=== PATIENT | female | born 1965 | race Caucasian/White ===

== ENCOUNTER 2023-04-21 11:50 | Day surgery (SDC) | payer OTHER ==
--- NOTE | 2023-03-24 13:48 | NUR ---
PT CALLED AND ASKED IF SHE CAN HAVE A ROTATOR CUFF SURGERY ON April AND THEN HAVE HER COLONOSCOPY ON THE . PT REPORTS SHE IS HAVING A RIGHT ROTATOR CUFF REPAIR. DISCUSSED WITH PT SHE NEEDS TO CALL HER SURGEON'S OFFICE TO CLARIFY THAT THERE ARE NO ISSUES WITH DOING BOTH OF THESE. PT AGREEABLE AND STATES UNDERSTANDING.
[~2023-04-21] VITALS: Ht 172.7 cm; Wt 138.6 kg
[~2023-04-21 11:50] MED LIST: CHLORPROMAZINE100 MG PO; CYMBALTA60 MG PO; EZETIMIBE10 MG PO; FIORICET 50-321 EACH PO; FISH OIL 1,0001 EAC1 PO; GABAPENTIN100 MG PO; GABAPENTIN400 MG PO; HYDROCORTISONE30 G1 TOP; IBUPROFEN800 MG PO; KETOROLAC30 MG/1 M2 INJ; KONDREMUL2.5 ML/5 M PO; LEVOTHROID150 MCG PO; MELOXICAM7.5 MG PO; MOTRIN IB200 MG PO; MOTRIN800 MG; MULTIPLE VITAM1 EAC1 PO; NORCO 5-325 TA1 EACH PO; NURTEC ODT75 MG PO; OXYBUTYNIN CHLO10 MG PO; PRISTIQ ER25 MG PO; SENOKOT8.6 MG PO; SEROQUEL100 MG PO; SIMVASTATIN20 MG PO; SPIRONOLACTONE50 MG PO; SUMATRIPTAN SUC50 MG PO; TRAMADOL HCL50 MG PO; TYLENOL WITH C1 EACH PO; VITAMIN D21250 MCG PO; VITAMIN D5000 UNIT PO; WELLBUTRIN XL300 MG PO; ZYRTEC10 MG PO
[2023-04-21 12:14] VITALS: BP 134/82
[2023-04-21] MEDS ORDERED: OXYCODONE HCL5 MG PO (12:19)
[2023-04-21] MEDS ORDERED: DESVENLAFAXINE25 MG PO (12:20)
--- NOTE | 2023-04-21 13:44 | NUR ---
04/21/23 1344 Donna Raphael 1340-PT TO PACU IN LL POSITION. EYES CLOSED. OPENS EYES TO VERBAL STIMULI. BREATHING EASY AND UNLABORED. SPO2 >90% ON 3 L O2 VIA NC. PT DENIES PAIN AND NAUSEA. PT ENCOURAGED TO PASS GAS.
[2023-04-21 14:02] VITALS: BP 116/69
--- NOTE | 2023-04-24 12:28 | PATH ---
[facility] [address] [place], [place] [address] Signed SPECIMEN(S): A CECUM POLYP SPECIMEN(S): B HEPATIC FLEXURE POLYP SPECIMEN(S): C SPLENIC FLEXURE POLYP SPECIMEN(S): D SIGMOID POLYP SPECIMEN SOURCE: A. CECUM POLYP B. HEPATIC FLEXURE POLYP C. SPLENIC FLEXURE POLYP D. SIGMOID POLYP CLINICAL HISTORY: Preop: Diarrhea. Postop: Polyps x4. FINAL PATHOLOGIC DIAGNOSIS: A. Cecum polyp: - Tubular adenoma (three fragments). B. Hepatic flexure polyp: - Tubular adenoma (two fragments). C. Splenic flexure polyp: - Tubular adenoma (one fragment). D. Sigmoid polyp: - Hyperplastic polyp (two fragments). JVR:[facility] MICROSCOPIC EXAMINATION: Histologic sections of all submitted blocks are examined by light microscopy. These findings, together with the gross examination, support the pathologic diagnosis. GROSS DESCRIPTION: A. The specimen, labeled and designated "Aby Michelle" and designated on the requisition "colon, cecum polypectomy," is received in formalin and consists of 5 rodriguez-brown soft tissue fragments measuring 0.3 to 0.5 cm in length and up to 0.3 cm in greatest diameter. Specimens are submitted entirely in (A1). B. The specimen, labeled and designated "Aby Michelle" and designated on the requisition "colon, hepatic flexure polypectomy," is received in formalin and consists of 2 rodriguez soft polypoid tissue fragments measuring 0.2 x 0.4 cm. Specimens are submitted entirely in (B1). C. The specimen, labeled and designated "Aby Michelle" and designated on the PATIENT NAME: NOLBERTO MICHELLE PATHOLOGY DATE OF : 61 REPORT #: [id number] PHYSICIAN: DESI BRAXTON PCP: CAROLINE WHITMAN PA-C REPORT IS CONFIDENTIAL AND NOT TO BE RELEASED WITHOUT AUTHORIZATION [facility] [address], [place] [address] Signed requisition "colon, splenic flexure polypectomy," is received in formalin and consists of 1 rodriguez soft polypoid tissue measuring 0.3 x 0.4 cm and submitted entirely in (C1). D. The specimen, labeled and designated "Aby Michelle," and designated on the requisition "colon, sigmoid polypectomy," is received in formalin and consists of 1 rodriguez soft polypoid tissue fragment measuring 0.3 x 0.4 cm and submitted entirely in (D1). MMA (under the direct supervision of a pathologist) The Gross Description was prepared using a voice recognition system. The report was reviewed for accuracy; however, sound-alike word errors, addition and/or deletions may occur. If there is any question about this report, please contact Client Services. PERFORMING LABORATORY: Technical component was performed by [facility], [address] [place] [id number] (CLIA# [id number]). Professional interpretation was performed by [facility], [address] [place] [id number] (CLIA#: [id number]). Diagnostician: Benja Sarabia MD Pathologist Electronically Signed 04/24/2023 Copies: ~ PATIENT NAME: NOLBERTO MICHELLE PATHOLOGY DATE OF : 61 REPORT #: [id number] PHYSICIAN: DSEI PATHOLOGY PCP: CAROLINE WHITMAN PA-C REPORT IS CONFIDENTIAL AND NOT TO BE RELEASED WITHOUT AUTHORIZATION
--- NOTE | 2023-04-24 14:11 | OR ---
[facility] [address] [place], [place] [address] Signed DATE OF OPERATION: 04/21/2023 SURGEON: Miriam Cararsco MD PREOPERATIVE DIAGNOSES: Colon screening, history of episodic diarrhea alternated with constipation. POSTOPERATIVE DIAGNOSIS: Small polyps x4. PROCEDURE: Total colonoscopy to cecum with cold snare polypectomy x1 and cold morcellation polypectomy x3. ANESTHESIA: Intravenous sedation; fentanyl 200 mcg and Versed 10 mg. INDICATION: This 57-year-old white woman is morbidly obese with greater than 300 pounds. She is a patient of Ingrid Silva. She has been referred for colonoscopy. She has had colonoscopy twice in the past without findings of polyps that she is aware of. She does have constipation alternating with diarrhea, most dominantly constipation however. She has a perception of prior history of "ulcerative colitis" though takes no medications specifically for that. She is admitted at this time to undergo colonoscopy, understands the risk of bleeding, infection, and perforation. FINDINGS: The prep was good. Complete colonoscopy was undertaken of the cecum. There were four small polyps identified, all excised with cold morcellation or cold snare technique. She tolerated the procedure well. Polyps were located in the cecum, hepatic flexure, splenic flexure, and rectosigmoid. PROCEDURE: The patient was brought to the endoscopy suite and placed in lateral decubitus position given intravenous sedation to the point of slurred speech and nystagmus. Digital rectal examination was normal. An Olympus video colonoscope was passed in the rectum and manipulated throughout the colon ultimately intubating the cecum itself. Mucosa behind the ileocecal valve was elevated with the biopsy forceps for close inspection. The scope was withdrawn. In the Electronically Signed By: MIRIAM CARRASCO MD 04/24/23 1411 PATIENT NAME: NOLBERTO GIMENEZ OPERATIVE REPORT DATE OF : 61 REPORT #: [id number] PHYSICIAN: MIRIAM CARRASCO MD PCP: INGRID SILVA PA-C REPORT IS CONFIDENTIAL AND NOT TO BE RELEASED WITHOUT AUTHORIZATION [facility] [address] [place], [place] [address] Signed junction between the right colon and the cecum, there was a small polyp. This was excised with cold morcellation technique. Withdrawal of scope to the hepatic flexure demonstrated a similar such polyp. It too was excised with cold snare polypectomy technique. Further withdrawal noted a more substantial sessile polyp at the splenic flexure. This was excised with cold snare technique. Specimen passed for pathology. Further withdrawal showed no abnormality into the rectosigmoid where a very small polyp was noted, most likely adenomatous, it was excised with cold morcellation technique as well. The scope was withdrawn. A retroflexed view was normal. The scope was removed and the patient was taken to the recovery room in good condition. CONCLUDING DIAGNOSIS: Polyps x4. PLAN: Recommend repeat colonoscopy in 3-5 years, sooner if symptoms should develop. She will return to the ongoing care of ZOEY García. MD JOSE Jose/TARAH /[id number] cc: Ingrid Silva PA-C Copies: INGRID SILVA PA-C ~ Electronically Signed By: MIRIAM CARRASCO MD 04/24/23 1411 PATIENT NAME: NOLBERTO GIMENEZ OPERATIVE REPORT DATE OF : 61 REPORT #: [id number] PHYSICIAN: MIRIAM CARRASCO MD PCP: INGRID SILVA PA-C REPORT IS CONFIDENTIAL AND NOT TO BE RELEASED WITHOUT AUTHORIZATION
== END 2023-04-21 14:14 | disposition home or self-care (01) ==
LOC: OPS 11:50 → DS 12:05 → OPS 13:00
PROVIDERS: ATTEND Surgery
PROC: 0DBL8ZX Excision of Transverse Colon, Via Natural or Artificial Opening Endoscopic, Diagnostic (ICD-10-PCS; 2023-04-21)
PROC: 0DBN8ZX Excision of Sigmoid Colon, Via Natural or Artificial Opening Endoscopic, Diagnostic (ICD-10-PCS; 2023-04-21)
PROC: 0DBH8ZX Excision of Cecum, Via Natural or Artificial Opening Endoscopic, Diagnostic (ICD-10-PCS; principal; 2023-04-21 13:00)
DX: R19.7 Diarrhea, unspecified (principal); K59.00 Constipation, unspecified; D12.0 Benign neoplasm of cecum; D12.3 Benign neoplasm of transverse colon; E66.01 Morbid (severe) obesity due to excess calories; E03.9 Hypothyroidism, unspecified; E78.5 Hyperlipidemia, unspecified; Z68.42 Body mass index [BMI] 45.0-49.9, adult; Z90.49 Acquired absence of other specified parts of digestive tract; Z96.653 Presence of artificial knee joint, bilateral; Z79.899 Other long term (current) drug therapy
CPT/HCPCS: 99153; G0500; J0690; J2250; J3010; J7121

== ENCOUNTER 2025-07-13 12:34 | Observation (INO) | payer OTHER ==
[~2025-07-13] VITALS: Ht 172.7 cm; Wt 140.6 kg
[~2025-07-13 12:34] MED LIST changes: +DESVENLAFAXINE25 MG PO; -LEVOTHROID150 MCG PO; +LEVOTHYROXINE150 MCG PO; +OXYCODONE HCL5 MG PO
--- OUTSIDE RECORDS SUMMARY | 2025-07-13 12:35 | XMS ---
PreManage Notification: NOLBERTO GIMENEZ Security Drywall Sander Events No recent Security Events currently on file CRITERIA MET - Group Notification - [facility] - 2 Visits in 30 Days CARE PROVIDERS -[facility] Dentist: Group Contract Analyst [facility] PHONE: [phone] - [place]- Dentist: Group Contract Analyst [facility] PHONE: [phone] [facility]: Multi-Specialty Current FAMILY PHONE: Unknown Elizabet Omer Nurse Practitioner: Family Current PHONE: Unknown Care Guidelines exist for the following facilities: [facility] ( 02/22/2020 ) Karli VISIT COUNT (12 MO.) [address] [facility] TOTAL 2 NOTE: Visits indicate total known visits. ED/UCC VISIT TRACKING (12 MO.) 07/13/2025 12:35 [facility] TYPE: Emergency COMPLAINT: - SKIN PROBLEM 07/09/2025 13:42 [facility] TYPE: Emergency COMPLAINT: - SKIN ISSUES INPATIENT VISIT TRACKING (12 MO.) No inpatient visits to display in this time frame [email or web address]
[2025-07-13] MEDS ORDERED: SEVOFLURANE 250 ML BTL INH ONE (16:02)
[2025-07-13 17:05] LABS: BASOPHILS 0.2 % (0.1-1.2); EOSINOPHILS 0.9 % (0.7-5.8); LYMPHOCYTES 27.9 % (19.3-51.7); MCH 31.7 PG (25.6-32.2); MCHC 34.9 g/dL (32.2-35.5); MCV 90.9 fL (79.4-94.8); MONOCYTES 5.6 % (4.7-12.5); NEUTROPHILS 65.0 % (34.0-71.1); RBC 5.26 M/uL (3.93-5.22)
[2025-07-13] MEDS ORDERED: MORPHINE SULFATE 4 MG/ML VIAL IV ONE (17:30)
[2025-07-13] MEDS ORDERED: DAPTOmycin 500 MG/10 ML VIAL IV ONE (17:30)
[2025-07-13] MEDS ORDERED: LACTATED RINGER'S 1,000 ML IV SCH ×3 (17:45→22:00)
[2025-07-13] MEDS ORDERED: FAMOTIDINE 20 MG/ 2 ML VIAL IV ONE (17:45)
[2025-07-13 17:50] LABS: ALT (SGPT) 21.0 U/L (14-59); AST (SGOT) 12.0 U/L (15-37); GLOMERULAR FILTRATION RATE,EST 91.0 mL/min (>60); PROTEIN, TOTAL 7.3 g/dL (6.4-8.2); UREA NITROGEN 12.0 mg/dL (7-18)
[2025-07-13] MEDS ORDERED: CLINDAMYCIN PHOSPHATE/D5W 600 MG/50 ML PIGGYBACK IV ONE (18:30)
[2025-07-13] MEDS ORDERED: MORPHINE SULFATE 10 MG/ML VIAL IV PRN (18:30)
[2025-07-13] MEDS ORDERED: KETOROLAC TROMETHAMINE 30 MG/ML VIAL IV PRN ×2 (18:30→22:00)
[2025-07-13] MEDS ORDERED: CLEOCIN HCL300 MG PO (18:41)
[2025-07-13] MEDS ORDERED: CEPHALEXIN500 MG PO (18:42)
[2025-07-13] MEDS ORDERED: FAMOTIDINE 20 MG/ 2 ML VIAL IV SCH ×2 (21:00→22:03)
[2025-07-13] MEDS ORDERED: fentaNYL citrate 100 MCG/2 ML VIAL ONE (21:16)
[2025-07-13] MEDS ORDERED: LIDOCAINE HCL 2% 5 ML SDV ONE (21:16)
[2025-07-13] MEDS ORDERED: ROCURONIUM BROMIDE 50 MG/5 ML SYR ONE (21:22)
[2025-07-13] MEDS ORDERED: DEXAMETHASONE SOD PHOS 4 MG/ML VIAL ONE (21:44)
[2025-07-13] MEDS ORDERED: ACETAMINOPHEN 1,000 MG/100 ML VIAL ONE (21:44)
[2025-07-13] MEDS ORDERED: KETOROLAC TROMETHAMINE 30 MG/ML VIAL ONE (21:44)
[2025-07-13] MEDS ORDERED: ACETAMINOPHEN 500 MG TAB PO SCH (22:00)
[2025-07-13] MEDS ORDERED: DOXYCYCLINE HYCLATE 100 MG CAP PO SCH (22:01)
--- NOTE | 2025-07-13 22:05 | NUR ---
07/13/252204 Hanane Martinez 2158-PATIENT ARRIVED TO PACU ON 6L MASK RR EVEN. PATIENT REACTIVE TO VERBAL STIMULI EYES CLOSED. DRESSING TO LEFT BREAST CDI. SR HR 70'S. IVF INFUSING 2204-PATIENT AROUSING REPORTING PAIN TO BREAST RATES "6" EYES CLOSED 6L MASK RR EVEN 97%
[2025-07-13] MEDS ORDERED: fentaNYL citrate 50 MCG/ML SDV ONE (22:08)
[2025-07-13] MEDS ORDERED: NALOXONE HCL 0.4 MG SYR IV PRN (22:15)
[2025-07-13] MEDS ORDERED: fentaNYL citrate 50 MCG/ML SDV IV PRN (22:15)
[2025-07-13] MEDS ORDERED: IBLOOD GLUCOSE TEST STRIP 1 EA TEST VI PRN (22:15)
[2025-07-13] MEDS ORDERED: HYDROmorphone HCL 1 MG/ML SYR IV PRN (22:15)
[2025-07-13 22:48] VITALS: BP 116/65
[2025-07-13 23:54] VITALS: BP 127/76
--- NOTE | 2025-07-13 23:58 | NUR ---
PATIENT RESTING IN BED. ADMISSION ASSESSMENT COMPLETE. PATIENT LEFT BREAST DRESSING C/D/I WITH NO DRAINAGE NOTED. PATIENT DENIES PAIN. SCHEDULED MEDICATION ADMINISTERED. IV FLUID INFUSING PER ORDER. PATIENT ORIENTED TO ROOM AND CALL LIGHT. VS AND I&Os OBTAINED AND RECORDED. NO FURTHER NEEDS. CALL LIGHT IN REACH. BED ALARM ON.
[2025-07-14] VITALS (7 sets, daily range): BP systolic 120–135; BP diastolic 73–91
--- NOTE | 2025-07-14 01:24 | NUR ---
L AC IV INFILTRATED. L AC IV DCd WNL WITH TIP INTACT. L FOREARM IV PLACED BY EVY BRANCH. PATIENT MARTHA WELL. PATIENT REPORTS 6/10 L BREAST PAIN. PRN PAIN MEDICATION ADMINISTERED. PATIENT DENIES FURTHER NEEDS. CALL LIGHT IN REACH.
--- NOTE | 2025-07-14 02:08 | NUR ---
PATIENT RESTING IN BED. VS OBTAINED AND RECORDED. PATIENT DENIES PAIN. NO FURTHER NEEDS. CALL LIGHT IN REACH.
--- NOTE | 2025-07-14 04:56 | NUR ---
CALL LIGHT ANSWERED. PATIENT UP TO BATHROOM USING 1P SBA TO VOID. PATIENT BACK TO BED. VS AND I&Os OBTAINED AND RECORDED. L BREAST DRESSING C/D/I. NO FURTHER NEEDS AT THIS TIME. CALL LIGHT IN REACH.
--- NOTE | 2025-07-14 06:03 | NUR ---
PATIENT RESTING IN BED WATCHING TV. PATIENT DENIES PAIN. SCHEDULED MEDICATION ADMINISTERED. NO FURTHER NEEDS. CALL LIGHT IN REACH.
--- NOTE | 2025-07-14 07:25 | NUR ---
RECIEVED REPORT FROM JOSE CARLOS LAGOS. PT IS RESTING IN BED WITH EYES OPEN. RR EVEN AND UNLABORED. CALL LIGHT IS WITHIN REACH.
--- NOTE | 2025-07-14 09:34 | NUR ---
UR CLINICAL REVIEW: CASH, MEETS OBSERVATION CRITERIA FOR CELLULITIS I&D REQUIRED FOR BREAST ABSCESS, IV FLUIDS, IV ANALGESICS FAILED OUTPATIENT TREATEMENT [facility] OBS 07/13/25 @ 1830 ORDER MATCHES REG NO AUTH REQUIRED FOR OBS PER MEDICAID RULES PLAN TO DC TO HOME, POTENTIALLY TODAY IF CRITERIA MET 07/15/2025
[2025-07-14] MEDS ORDERED: SIMVASTATIN40 MG PO (10:13)
[2025-07-14] MEDS ORDERED: DESVENLAFAXINE50 M3 PO (10:14)
--- NOTE | 2025-07-14 11:00 | NUR ---
Spoke with Julianna. She plans on dc to home today. She is waiting to see Dr. Spence. She denies any needs. Her friend is present and will drive her home. Pt states x2 she has no needs. Pt will dc home after seeing Dr. Spence today.
--- NOTE | 2025-07-14 11:11 | NUR ---
IS ROUNDING ON THE PATIENT AT THIS TIME.
[2025-07-14] MEDS ORDERED: DOXYCYCLINE HY100 MG PO (11:21)
[2025-07-14] MEDS ORDERED: TYLENOL EXTRA500 MG PO (11:22)
[2025-07-14] MEDS ORDERED: PERCOCET 7.5-31 EACH PO (11:22)
[2025-07-14] MEDS ORDERED: MOTRIN IB200 MG PO (11:23)
--- NOTE | 2025-07-14 11:31 | OR ---
[facility] [address] [place], [place] [address] Signed DATE OF OPERATION: 07/13/2025 SURGEON: Miriam Carrasco MD PREOPERATIVE DIAGNOSIS: Left medial breast abscess with extensive cellulitis. POSTOPERATIVE DIAGNOSES: 1. Left medial breast abscess with extensive cellulitis. 2. Epidermal inclusion cyst elements and area of abscess, left medial breast. PROCEDURES: 1. Exam under anesthesia. 2. Incision and drainage of left breast abscess. 3. Debridement of soft tissue including probable epidermal inclusion cyst wall. 4. Placement of yellow vessel loop and iodophor packing. ANESTHESIA: General endotracheal, Cesar Barker CRNA. INDICATION: 59-year-old white woman who lives in [place] and a few days ago, was noted to have cellulitic changes of the left medial breast. Things progressed to the point of fluctuance and she presents to the emergency room where she was evaluated by Dr. Rodriguez and clearly noted to have an abscess of the breast in addition to significant cellulitis. She has been fluid resuscitated, given broad-spectrum antibiotics, and now to undergo incision and drainage and debridement as appropriate. The risk of bleeding, infection, recurrence, need for additional treatment, and failure to cure were reviewed. She understands, wished to proceed. FINDINGS: Indeed, there was an abscess in the medial aspect of the left breast. The extensive cellulitis extended in a band-like configuration across the breast. As it turns out, the space involved was quite extensive and although not fully containing purulence, the infectious process clearly involved much of a portion of the breast. The material draining initially did show waxy substance consistent with epidermal inclusion cyst and further dissection showed a cyst wall in the medial aspect at the site of the incision. Whether or not began and worsened as an infected epidermal inclusion cyst of the breast is uncertain. Ultimately, a counter incision was made laterally in the breast and a long yellow vessel loop tied in position and iodoform packing accomplished. Electronically Signed By: MIRIAM CARRASCO MD 07/14/25 1131 PATIENT NAME: NOLBERTO GIMENEZ OPERATIVE REPORT DATE OF : 61 REPORT #: [id number] PHYSICIAN: MIRIAM CARRASCO MD PCP: SURAJ HUERTA REPORT IS CONFIDENTIAL AND NOT TO BE RELEASED WITHOUT AUTHORIZATION [facility] [address] [place], [place] [address] Signed DESCRIPTION OF PROCEDURE: The patient was brought to the operating room, given a general endotracheal anesthetic. She received broad-spectrum antibiotic daptomycin and clindamycin per emergency room physician. After satisfactory general endotracheal anesthesia, the left breast was prepared with a chlorhexidine solution and draped sterilely. An incision was made with 11 blade in the medial aspect of the left breast in the area of maximum fluctuance. Passage of knife into the soft tissue did not evolve pus under pressure, but egress of purulence and a waxy substance consistent with epidermal inclusion cyst. The area was broken down in its loculations. Gram stain and cultures obtained. Further inspection showed the area in question to have a cyst wall consistent with epidermal inclusion cyst. It was unclear if an epidermal inclusion cyst was the culprit to begin with. In any case, the cellulitic changes of the breast extended laterally and using a hemostat, loculations taken down essentially across the entire breast almost. A counter incision was made with a 15 blade and the yellow vessel loop passed through the tract and ultimately tied in a knot. Irrigation was undertaken in the space as well as debridement of the cyst wall and other soft tissue related to the original abscess cavity. Irrigation was complete and there was some oozing of blood laterally. This area was cauterized and ultimately packed with iodoform quarter-inch as was the medial aspect. The cellulitic changes were resolving already. Fluff gauze was applied as was ABD pads. She was extubated in the operating room, anticipating transfer to recovery room in good condition. Blood loss was less than 20 mL. Sponge, needle and instrument counts were reported as correct x3. MD JOSE Jose/MODL /[id number] cc: Madan Rodriguez [facility] Electronically Signed By: MIRIAM CARRASCO MD 07/14/25 1131 PATIENT NAME: NOLBERTO GIMENEZ OPERATIVE REPORT DATE OF : 61 REPORT #: [id number] PHYSICIAN: MIRIAM CARRASCO MD PCP: SURAJ HUERTA REPORT IS CONFIDENTIAL AND NOT TO BE RELEASED WITHOUT AUTHORIZATION [facility] [address] [place], [place] [address] Signed Copies: ~ Electronically Signed By: MIRIAM CARRASCO MD 07/14/25 1131 PATIENT NAME: NOLBERTO GIMENEZ KOFI OPERATIVE REPORT DATE OF : 61 REPORT #: [id number] PHYSICIAN: MIRIAM CARRASCO MD PCP: SURAJ HUERTA REPORT IS CONFIDENTIAL AND NOT TO BE RELEASED WITHOUT AUTHORIZATION
--- NOTE | 2025-07-14 11:31 | HP ---
[facility] [address] [place], [place] [address] Signed ADMISSION DATE: 07/13/2025 TIME: 6:30 p.m. PROBLEM: Left medial breast abscess with advanced extensive cellulitis. HISTORY OF PRESENT ILLNESS: This 59-year-old white woman presented to the emergency room at approximately 5:[address] Rodriguez, emergency room physician, found to have erythema, swelling, and severe pain of the left medial breast. The patient was seen in the [place] in [place] was treated with cephalexin and clindamycin. This was on or about 07/11/2025. The patient did take the medication, but the area of erythema worsened and has progressed to the mass. It is quite tender. Evaluation confirmed the finding of a left medial breast abscess with fluctuation and extensive cellulitis in the medial aspect of the left breast. The patient does describe having had a breast abscess in the past, but it was on the lateral aspect. PAST MEDICAL HISTORY: 1. Negative for diabetes. 2. It is noted she does have depression, migraines, hypothyroidism. SURGICAL HISTORY: Includes: 1. Left total knee replacement. 2. Right knee surgery. 3. Right breast cyst. 4. Sinus surgery in the past. 5. Hysterectomy. 6. Thyroidectomy. 7. Hiatal hernia repair. ALLERGIES: She has allergies to morphine (hyperactive). CURRENT MEDICINES: Include: 1. Levothyroxine. Electronically Signed By: MIRIAM CARRASCO MD 07/14/25 1131 PATIENT NAME: NOLBERTO GIMENEZ HISTORY AND PHYSICAL DATE OF : 61 REPORT #: [id number] PHYSICIAN: MIRIAM CARRASCO MD PCP: SURAJ HUERTA REPORT IS CONFIDENTIAL AND NOT TO BE RELEASED WITHOUT AUTHORIZATION [facility] [address] [place], [place] [address] Signed 2. Desvenlafaxine. 3. Simvastatin. 4. Chlorpromazine. 5. Ezetimibe. 6. Nurtec ODT for headache pain. 7. Ibuprofen. SOCIAL HISTORY: She lives alone in [facility]. She does not work outside the home. REVIEW OF SYSTEMS: Denies any shortness of breath or chest pain. Has had no dysuria or hematuria. She has had no nipple discharge. She has no problems with the right breast. PHYSICAL EXAMINATION: GENERAL: Pleasant white woman who is somewhat obese. VITAL SIGNS: With a BMI of 45.9. Weight 136 kg, height 5 feet 8 inches. NECK: Trachea is midline. CHEST: Shows normal respiratory excursion. Pulses regular. BREASTS: Examination of the left breast with the nurse in attendance shows marked erythema and cellulitic changes of the medial left breast as well as an area of fluctuance at least 4 cm in size. There is no evidence of spontaneous necessitation thus far. Left arm is not edematous; IV has been placed in that arm. Right breast was examined without palpation. Only observation showing no sign of erythema or other problem. LABORATORY STUDIES: Show normal electrolytes. Creatinine 0.75. White count 8.17, hematocrit 47.8, platelets 264,000. ASSESSMENT: The patient has significant cellulitis of the left medial breast, which has progressed to an abscess quite obviously. It is exquisitely tender and painful for the patient. The patient was initially started with IV daptomycin and Zofran. I reviewed this with Dr. Rodriguez and he has planned additionally to add clindamycin. I did discuss the pathophysiology of breast cellulitis as well as abscess with the patient herself. I would recommend exam under anesthesia, incision and drainage of the abscess, probable placement of a counterincision and continued IV antibiotics for the cellulitic portion of the problem. It is unlikely this represents malignancy, but it is unclear if she has actually had a mammogram in recent times. That certainly will be necessary at some point, but not acutely of course. The risk of operation was reviewed Electronically Signed By: MIRIAM CARRASCO MD 07/14/25 1131 PATIENT NAME: NOLBERTO GIMENEZ HISTORY AND PHYSICAL DATE OF : 61 REPORT #: [id number] PHYSICIAN: MIRIAM CARRASCO MD PCP: SURAJ HUERTA REPORT IS CONFIDENTIAL AND NOT TO BE RELEASED WITHOUT AUTHORIZATION [facility] [address] [place] [id number] Signed with her including but not limited to bleeding, infection, cosmetic deformity, failure to cure the problem, and need for other additional procedures. She understands all this and wished to proceed. Miriam Carrasco MD JM/MODL /[id number] cc: Dr. Jennifer Walters Copies: ~ Electronically Signed By: MIRIAM CARRASCO MD 07/14/25 1131 PATIENT NAME: NOLBERTO GIMENEZ HISTORY AND PHYSICAL DATE OF : 61 REPORT #: [id number] PHYSICIAN: MIRIAM CARRASCO MD PCP: SURAJ HUERTA REPORT IS CONFIDENTIAL AND NOT TO BE RELEASED WITHOUT AUTHORIZATION
--- NOTE | 2025-07-14 11:38 | NUR ---
MED REC COMPLETE
--- NOTE | 2025-07-16 16:37 | PATH ---
[facility] [address] [place], [place] [address] Signed SPECIMEN(S): A LEFT BREAST ABCESS SPECIMEN SOURCE: A. LEFT BREAST ABCESS CLINICAL HISTORY: Left breast abscess FINAL PATHOLOGIC DIAGNOSIS: Products of debridement left breast: - Fragments of benign squamous epithelium/skin, abundant fragments of benign soft tissue with abscess and granulation tissue formation. - Keratin debris. - See comment. COMMENT: Similar features could be seen with a ruptured epidermal inclusion cyst. Clinical correlation is requested for definitive characterization. As part of the [facility] Technical Systems Architect Program, the case has been reviewed by a second Pathologist (JAZZY). [facility] MICROSCOPIC EXAMINATION: Histologic sections of all submitted blocks are examined by light microscopy. These findings, together with the gross examination, support the pathologic diagnosis. GROSS DESCRIPTION: The specimen, labeled and designated "Kia Michelle, products of debridement left breast per requisition," is received in formalin and consists of a 3 x 2.3 x 0.5 cm aggregate of rodriguez-pink slightly necrotic soft tissue. There are areas of hemorrhage present. There are no discrete lesions. The specimen is entirely submitted in cassette A1. AA (under the direct supervision of a pathologist) The Gross Description was prepared using a voice recognition system. The report was reviewed for accuracy; however, sound-alike word errors, addition and/or deletions may occur. If there is any question about this report, please contact Client Services. ADDITIONAL NOTES: Immunohistochemical and/or in situ hybridization studies if performed in this PATIENT NAME: NOLBERTO MICHELLE PATHOLOGY DATE OF : 61 REPORT #: [id number] PHYSICIAN: DESI BRAXTON PCP: SURAJ HUERTA REPORT IS CONFIDENTIAL AND NOT TO BE RELEASED WITHOUT AUTHORIZATION [facility] [address] [place] [place] [address] Signed case included appropriate positive controls that reacted as expected. This test was developed and its performance characteristics determined by [facility]. It has not been cleared or approved by the U.S. Food and Drug Administration. The FDA has determined that such clearance or approval is not necessary. This test is used for clinical purposes. It should not be regarded as investigational or for research. [facility] is certified under the Clinical Laboratory Improvement Amendments of 1988 (CLIA) as qualified to perform high complexity clinical laboratory testing. PERFORMING LABORATORY: Technical component was performed by [facility], [address] [place] [id number] (CLIA# [id number]). Professional interpretation was performed by [facility] - [place] [facility] - [address] [place] [address] (CLIA#: [id number]). Diagnostician: Benja Sarabia MD Pathologist Electronically Signed 07/16/2025 Copies: ~ PATIENT NAME: NOLBERTO MICHELLE PATHOLOGY DATE OF : 61 REPORT #: [id number] PHYSICIAN: DESI PATHOLOGY PCP: SURAJ HUERTA REPORT IS CONFIDENTIAL AND NOT TO BE RELEASED WITHOUT AUTHORIZATION
== END 2025-07-14 12:00 | disposition home or self-care (01) ==
LOC: ED 12:34 → MS 12:36 → ED 12:36 → MS 07-14 12:00
PROVIDERS: Emergency Medicine; ADMIT Surgery; ATTEND Surgery
PROC: 0H9U00Z Drainage of Left Breast with Drainage Device, Open Approach (ICD-10-PCS; principal; 2025-07-13 20:41)
DX: N61.1 Abscess of the breast and nipple (principal); L72.0 Epidermal cyst; E89.0 Postprocedural hypothyroidism; F17.210 Nicotine dependence, cigarettes, uncomplicated; Z88.5 Allergy status to narcotic agent
CPT/HCPCS: 00400; 36415; 80053; 85025; 87070; 87075; 87076; 87205; 88304; 96365; 96375; 96376; 99284-25; A9270; G0378; J0131; J0878; J1100; J1885; J2003; J2270; J2405; J2704; J3010; J3490; J7121